=== PATIENT | female | born 1940 | race Caucasian/White ===

== ENCOUNTER → 2019-03-03 | Outpatient (CLI) | payer MEDICARE | END | disposition home or self-care (01) | LOC: CFH 13:12 | PROVIDERS: ATTEND Nurse Practitioner Primary Care | DX: I11.9 Hypertensive heart disease without heart failure (principal); E55.9 Vitamin D deficiency, unspecified; F41.9 Anxiety disorder, unspecified; Z79.899 Other long term (current) drug therapy | CPT/HCPCS: 93306 ==

== ENCOUNTER → 2020-06-04 | Outpatient (CLI) | payer MEDICARE ==
[~2020-06-04] MED LIST: OMNIPAQUE 350 MG/ML, 75ML BOTTLE ONE
== END | disposition home or self-care (01) ==
LOC: RAD 11:17
PROVIDERS: ATTEND Obstetrics & Gynecology
DX: R91.8 Other nonspecific abnormal finding of lung field (principal); R19.00 Intra-abdominal and pelvic swelling, mass and lump, unspecified site
CPT/HCPCS: 71260; Q9967

== ENCOUNTER 2020-06-23 06:12 | Day surgery (SDC) | payer MEDICARE ==
[2020-06-09 10:25] VITALS: BP 115/72
[~2020-06-23] VITALS: Ht 157.5 cm; Wt 70.0 kg
[~2020-06-23 06:12] MED LIST changes: +FENTANYL PF 100 MCG/2ML ONE; +FLUMAZENIL 0.1 MG/1 ML, 5ML ONE; +MIDAZOLAM 1 MG/ML, 5ML ONE; +NALOXONE 1 MG/ML, 2ML ONE; -OMNIPAQUE 350 MG/ML, 75ML BOTTLE ONE; +SODIUM CHLORIDE 0.9% 1,000 ML IV SCH; +TRAZ-175 PO
[2020-06-23] MEDS ORDERED: SODIUM CHLORIDE 0.9% 1,000 ML IV SCH (06:50)
[2020-06-23 07:16] VITALS: BP 155/83
[2020-06-23] MEDS ORDERED: MIDAZOLAM 1 MG/ML, 5ML ONE (08:06)
[2020-06-23] MEDS ORDERED: FLUMAZENIL 0.1 MG/1 ML, 5ML ONE (08:06)
[2020-06-23] MEDS ORDERED: FENTANYL PF 100 MCG/2ML ONE (08:06)
[2020-06-23] MEDS ORDERED: NALOXONE 1 MG/ML, 2ML ONE (08:06)
== END 2020-06-23 14:15 | disposition home or self-care (01) ==
LOC: OUT 06:12
PROVIDERS: ATTEND Obstetrics & Gynecology
DX: R91.8 Other nonspecific abnormal finding of lung field (principal); J45.909 Unspecified asthma, uncomplicated; E55.9 Vitamin D deficiency, unspecified; N94.89 Other specified conditions associated with female genital organs and menstrual cycle; F51.01 Primary insomnia; D69.6 Thrombocytopenia, unspecified; Z79.1 Long term (current) use of non-steroidal anti-inflammatories (NSAID); Z79.899 Other long term (current) drug therapy; Z87.442 Personal history of urinary calculi; Z90.710 Acquired absence of both cervix and uterus; Z96.642 Presence of left artificial hip joint; Z80.0 Family history of malignant neoplasm of digestive organs; Z80.3 Family history of malignant neoplasm of breast
CPT/HCPCS: 32405; 71045; 77012; 88184; 88185; 88305; 88333; 99156; 99157; C2613; J2250; J3010; J2310

== ENCOUNTER 2020-08-10 05:56 | Day surgery (SDC) | payer MEDICARE ==
[~2020-08-10] VITALS: Ht 157.5 cm; Wt 70.5 kg
[~2020-08-10 05:56] MED LIST changes: -FENTANYL PF 100 MCG/2ML ONE; -FLUMAZENIL 0.1 MG/1 ML, 5ML ONE; -MIDAZOLAM 1 MG/ML, 5ML ONE; -NALOXONE 1 MG/ML, 2ML ONE; -SODIUM CHLORIDE 0.9% 1,000 ML IV SCH
[2020-08-10] MEDS ORDERED: SODIUM CHLORIDE 0.9% 1,000 ML IV SCH (06:52)
[2020-08-10] MEDS ORDERED: CRANBERRY PO (06:54)
[2020-08-10] MEDS ORDERED: PREVAGEN PO (06:54)
[2020-08-10 06:55] VITALS: BP 122/79
[2020-08-10 07:25] LABS: INTERNATIONAL NORMALIZED RATIO 1.04 (0.93-1.1); PROTHROMBIN TIME 10.7 Seconds (9.6-11.5)
[2020-08-10] MEDS ORDERED: MIDAZOLAM 1 MG/ML, 5ML ONE (08:07)
[2020-08-10] MEDS ORDERED: FENTANYL PF 100 MCG/2ML ONE (08:07)
[2020-08-10] MEDS ORDERED: FLUMAZENIL 0.1 MG/1 ML, 5ML ONE (08:08)
[2020-08-10] MEDS ORDERED: NALOXONE 1 MG/ML, 2ML ONE (08:08)
== END 2020-08-10 09:00 | disposition home or self-care (01) ==
LOC: OUT 05:56
PROVIDERS: ATTEND Internal Medicine Hematology & Oncology
DX: C88.4 Extranodal marginal zone B-cell lymphoma of mucosa-associated lymphoid tissue [MALT-lymphoma] (principal); K76.9 Liver disease, unspecified; M19.90 Unspecified osteoarthritis, unspecified site; E11.9 Type 2 diabetes mellitus without complications; F41.9 Anxiety disorder, unspecified; F32.9 Major depressive disorder, single episode, unspecified; Z90.710 Acquired absence of both cervix and uterus; Z96.659 Presence of unspecified artificial knee joint; Z96.649 Presence of unspecified artificial hip joint; Z79.899 Other long term (current) drug therapy; Z98.890 Other specified postprocedural states
CPT/HCPCS: 36415; 47000; 77012; 85610; 88184; 88185; 88307; 99156; 99157; J2250; J3010; J7030; 88313; J2310

== ENCOUNTER → 2020-10-05 | Outpatient (CLI) | payer MEDICARE ==
[~2020-10-05] MED LIST changes: +BIMATOPROST 0.01% EACHEYE; +CHOL10003 PO; +CRANBERRY PO; +PREVAGEN PO
[2020-10-05 11:40] LABS: BASOPHILS % (AUTO) 1 % (0-1); EOSINOPHILS % (AUTO) 1 % (1-7); LYMPHOCYTES % (AUTO) 29 % (22-44); MEAN CORPUSCULAR HGB CONC 31.6 g/dL (32.4-35.8); MEAN PLATELET VOLUME 9.6 fL (7.4-10.4); MONOCYTES % (AUTO) 6 % (2-9); NEUTROPHILS % (AUTO) 63 % (42-75); PLATELET COUNT 179 x10^3/uL (130-400); RED BLOOD COUNT 5.25 x10^6/uL (3.82-5.3); RED CELL DISTRIBUTION WIDTH 14.9 % (9.6-15.2)
[2020-10-05 11:44] LABS: MICROSCOPIC INDICATED
[2020-10-05 11:45] LABS: INTERNATIONAL NORMALIZED RATIO 1.05 (0.93-1.1); PROTHROMBIN TIME 11.1 Seconds (9.6-11.5)
[2020-10-05 11:46] LABS: MD NO
[2020-10-05 11:49] LABS: ALBUMIN 3.6 g/dL (3.4-5.0); ANION GAP 5 mmol/L (5-15); CALCIUM 8.7 mg/dL (8.5-10.1); CHLORIDE 112 mmol/L (98-107)
[2020-10-05 11:53] LABS: ALANINE AMINOTRANSFERASE 13 U/L (12-78); ALKALINE PHOSPHATASE 92 U/L (45-117); BILIRUBIN,TOTAL 0.7 mg/dL (0.2-1.0); TOTAL PROTEIN 6.9 g/dL (6.4-8.2)
== END | disposition home or self-care (01) ==
LOC: STAR 09:46
PROVIDERS: ATTEND Obstetrics & Gynecology
DX: Z01.818 Encounter for other preprocedural examination (principal); N20.0 Calculus of kidney; R91.1 Solitary pulmonary nodule; R91.8 Other nonspecific abnormal finding of lung field; J98.11 Atelectasis; I25.2 Old myocardial infarction
CPT/HCPCS: 36415; 71046; 80053; 81001; 85025; 85610; 85730; 86304; 87086; 93005

== ENCOUNTER 2020-10-11 05:25 | Day surgery (SDC) | payer MEDICARE ==
[~2020-10-11] VITALS: Ht 157.5 cm; Wt 71.8 kg
[2020-10-11] MEDS ORDERED: CHLORHEXIDINE 15 ML UDC MM ONE (06:00)
[2020-10-11 06:10] VITALS: BP 141/84
[2020-10-11] MEDS ORDERED: CEFOTETAN PMX 2GM/50ML 50 ML IVPB ONE (06:30)
[2020-10-11] MEDS ORDERED: LACTATED RINGERS 1,000 ML IV SCH (06:30)
[2020-10-11] MEDS ORDERED: BUPIVACAINE/PF 0.25% ONE (06:49)
[2020-10-11] MEDS ORDERED: EPINEPHRINE 1 MG/ML, 1ML ONE (06:49)
[2020-10-11] MEDS ORDERED: HEPARIN 1,000 UNITS/ML, 10ML ONE (06:49)
[2020-10-11] MEDS ORDERED: PROPOFOL 10 MG/ML, 20ML ONE (06:57)
[2020-10-11] MEDS ORDERED: FENTANYL PF 100 MCG/2ML ONE ×3 (06:57→10:41)
[2020-10-11] MEDS ORDERED: ACETAMINOPHEN 500 MG TABLET ONE (06:58)
[2020-10-11] MEDS ORDERED: LIDOCAINE-MPF 2% ,5ML ONE (06:58)
[2020-10-11] MEDS ORDERED: ROCURONIUM 10MG/ML,5ML ONE (06:58)
[2020-10-11] MEDS ORDERED: ACETAMINOPHEN 500 MG TABLET PO ONE (07:00)
[2020-10-11] MEDS ORDERED: EPHEDRINE 50 MG/ML, 1ML ONE (07:44)
[2020-10-11] MEDS ORDERED: ONDANSETRON 2MG/ML, 2ML ONE (07:44)
[2020-10-11] MEDS ORDERED: DEXAMETHASONE 4 MG/ML, 1ML ONE ×2 (07:56)
[2020-10-11] MEDS ORDERED: ONDANSETRON 2MG/ML, 2ML IVPush PRN (08:30)
[2020-10-11] MEDS ORDERED: FENTANYL PF 100 MCG/2ML IV PRN (08:30)
[2020-10-11] MEDS ORDERED: HYDROmorphone 1 MG/ML, 1ML INJ IVPush PRN (08:30)
[2020-10-11] MEDS ORDERED: PROMETHAZINE 25 MG/ML, 1ML IVPush PRN (08:30)
[2020-10-11] MEDS ORDERED: ESMOLOL 100 MG/10 ML ONE (10:44)
[2020-10-11] MEDS ORDERED: SUGAMMADEX 200 MG/2 ML IVPush ONE (11:16)
[2020-10-11] MEDS ORDERED: METOPROLOL 1 MG/ML, 5ML ONE (11:32)
== END 2020-10-11 16:00 | disposition home or self-care (01) ==
LOC: OUT 05:25
PROVIDERS: ATTEND Obstetrics & Gynecology
DX: N83.8 Other noninflammatory disorders of ovary, fallopian tube and broad ligament (principal); T81.82XA Emphysema (subcutaneous) resulting from a procedure, initial encounter; N83.292 Other ovarian cyst, left side; N83.291 Other ovarian cyst, right side; N94.89 Other specified conditions associated with female genital organs and menstrual cycle; N73.6 Female pelvic peritoneal adhesions (postinfective); N20.0 Calculus of kidney; C85.12 Unspecified B-cell lymphoma, intrathoracic lymph nodes; M19.90 Unspecified osteoarthritis, unspecified site; F41.8 Other specified anxiety disorders; E55.9 Vitamin D deficiency, unspecified; G47.00 Insomnia, unspecified; Z20.828 Contact with and (suspected) exposure to other viral communicable diseases; Z79.1 Long term (current) use of non-steroidal anti-inflammatories (NSAID); Z79.899 Other long term (current) drug therapy; Z90.710 Acquired absence of both cervix and uterus; Z90.49 Acquired absence of other specified parts of digestive tract; Z96.642 Presence of left artificial hip joint; Z96.653 Presence of artificial knee joint, bilateral; Z98.890 Other specified postprocedural states; Z80.3 Family history of malignant neoplasm of breast; Z80.0 Family history of malignant neoplasm of digestive organs; Y83.8 Other surgical procedures as the cause of abnormal reaction of the patient, or of later complication, without mention of misadventure at the time of the procedure
CPT/HCPCS: 36415; 52356; 58661; 74018; 86850; 86900; 86923; 87635; 88305; C1769; C2617; J0171; J1100; J2405; J2704; J3010; J7120; S2900; 76000; J1644

== ENCOUNTER → 2020-10-25 | Outpatient (CLI) | payer MEDICARE | END | disposition home or self-care (01) | LOC: RAD 15:57 | PROVIDERS: ATTEND Emergency Medicine | DX: I80.251 Phlebitis and thrombophlebitis of right calf muscular vein (principal) ==

== ENCOUNTER → 2020-10-28 | Outpatient (CLI) | payer MEDICARE ==
[~2020-10-28] MED LIST changes: +OMNIPAQUE 350 MG/ML, 100ML BOTTLE ONE
== END | disposition home or self-care (01) ==
LOC: CFH 11:06
PROVIDERS: ATTEND Internal Medicine Hematology & Oncology
DX: C88.4 Extranodal marginal zone B-cell lymphoma of mucosa-associated lymphoid tissue [MALT-lymphoma] (principal); K44.9 Diaphragmatic hernia without obstruction or gangrene; K57.90 Diverticulosis of intestine, part unspecified, without perforation or abscess without bleeding; R59.0 Localized enlarged lymph nodes; J84.10 Pulmonary fibrosis, unspecified; R91.8 Other nonspecific abnormal finding of lung field; I71.4 Abdominal aortic aneurysm, without rupture; N20.0 Calculus of kidney; M51.37 Other intervertebral disc degeneration, lumbosacral region; M16.11 Unilateral primary osteoarthritis, right hip
CPT/HCPCS: 71260; 74177; Q9967

== ENCOUNTER → 2021-06-08 | Outpatient (CLI) | payer MEDICARE | END | disposition home or self-care (01) | LOC: CFH 09:40 | PROVIDERS: ATTEND Internal Medicine Hematology & Oncology | DX: C88.4 Extranodal marginal zone B-cell lymphoma of mucosa-associated lymphoid tissue [MALT-lymphoma] (principal); K57.30 Diverticulosis of large intestine without perforation or abscess without bleeding; R91.8 Other nonspecific abnormal finding of lung field; R59.0 Localized enlarged lymph nodes; K44.9 Diaphragmatic hernia without obstruction or gangrene; K76.89 Other specified diseases of liver; I72.9 Aneurysm of unspecified site; M51.37 Other intervertebral disc degeneration, lumbosacral region; M16.11 Unilateral primary osteoarthritis, right hip; N20.0 Calculus of kidney | CPT/HCPCS: 71260; 74177; Q9967 ==